=== PATIENT | female | born 1950 | race Hispanic/Latino ===

== ENCOUNTER 2016-10-21 14:54 | Outpatient (CLI) | payer MEDICARE, OTHER | END 2016-10-21 14:55 | disposition home or self-care (01) | LOC: LABHHL 14:54 | PROVIDERS: ATTEND Surgery | DX: N63 Unspecified lump in breast (principal) | CPT/HCPCS: 88305; 88341; 88342; 88361 ==

== ENCOUNTER 2016-11-03 12:46 | Outpatient (CLI) | payer MEDICARE ==
--- NOTE | 2016-11-04 09:44 | Magnetic Resonance Report ---
BILATERAL BREAST MRI WITHOUT AND WITH CONTRAST: 11/03/16 12:46:00 CLINICAL: Newly diagnosed right breast cancer. Status post right ultrasound guided needle biopsy on 10/20/16. 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 The focus of carcinoma measured 3 mm in greatest dimension. COMPARISON:10/20/16 post biopsy mammogram and a bilateral diagnostic mammogram from [facility] 03/05/16.. TECHNIQUE: Axial 1.0-mm T1 without, axial high resolution 2.0-mm T2 and axial 1.0-mm dynamic Vibrant high-resolution postcontrast T1 fat saturation sequences on a 1.5 Mayelin magnet. The examination was performed with an 8 channel dedicated Sentinelle breast coil. Post processing with CAD and subtraction was performed on an weave energy workstation. 20 cc of Multihance was injected without incident for the contrast portion of the exam. Consent was obtained prior to the administration of the contrast. FINDINGS: Right: Moderate background parenchymal enhancement. The localizer clip from recent biopsy is not well seen but there are two suspicious masses in the vicinity of the clip. The larger mass is at 12 o'clock 8.4 cm from the nipple and measures 15.1 x 8.8 x 7.2 mm. It demonstrates heterogeneous enhancement with mixed kinetics, 125% peak enhancement and 25% type III washout. The mass is oval with an irregular margin. The second mass is 1.5 cm lateral at 11:30 o'clock 8.4 cm from the nipple. It measures 7.5 x 7.2 x 4.5 mm and demonstrates heterogeneous enhancement with mixed kinetics, 134% peak enhancement and 25% type III washout. No other mass or suspicious enhancement. No suspicious lymph nodes. Several small right axillary lymph nodes have central fat a benign morphology. Left: Moderate background parenchymal enhancement. No mass or suspicious enhancement. No suspicious lymph nodes. IMPRESSION: 1. A 15 mm right breast mass at 12 o'clock and a 7.5 mm right breast mass at 11:30 o'clock. Both masses have suspicious features and appear to be in the vicinity of the biopsy clip. I assume that the larger mass has been biopsied and is the known cancer. This case is complicated because there is no distinct mass on the mammogram. The ultrasound findings (which I don't have) may be more definitive. 2. Negative left breast. 3. No suspicious lymph nodes. RIGHT BI-RADS 6 -- Known Cancer LEFT BI-RADS 1 -- Negative
== END 2016-11-03 12:47 | disposition home or self-care (01) ==
LOC: SPVIMAG 12:46
PROVIDERS: ATTEND Surgery
DX: C50.411 Malignant neoplasm of upper-outer quadrant of right female breast (principal)
CPT/HCPCS: 0159T; A9577; C8908; 77059

== ENCOUNTER 2016-11-17 13:24 | Outpatient (CLI) | payer MEDICARE ==
--- NOTE | 2016-11-17 16:54 | Magnetic Resonance Report ---
MRI GUIDED VACUUM ASSISTED CORE BIOPSY TWO SITES RIGHT BREAST: 11/17/16 CLINICAL: Newly diagnosed right breast cancer and 2 additional suspicious lesions by recent MRI. COMPARISON: 11/03/16 MRI Breast Bilateral FINDINGS: Consent for the procedure was obtained. A Vibrant dynamic postcontrast series was performed on a 1.5 Mayelin magnet using an 8 channel Sentinelle dedicated breast coil. Two lesions were localized and targeted using [email or web address] Sentinelle biopsy software. These lesions correlate with the 2 lesions identified on the previous MRI. The skin was anesthetized with 1% lidocaine and small dermatotomies were performed. 2% lidocaine was administered for deeper anesthesia. 9-G biopsy was performed with an [email or web address] vacuum assisted device. Imaging demonstrated satisfactory positioning of the probe at the two sites and satisfactory samples were obtained. Clips were placed at both sites after confirmation of adequate sampling. The probes were removed and hemostasis was achieved with pressure to the sites. Sterile dressings were applied. The patient tolerated the procedure well and there were no apparent complications. A two view mammogram demonstrated concordant placement of both clips. The patient left the department in good condition and was given instructions for wound care and follow-up. IMPRESSION: Uncomplicated MRI biopsy with clip placement two sites right breast.
--- NOTE | 2016-11-17 16:54 | Magnetic Resonance Report ---
MRI GUIDED VACUUM ASSISTED CORE BIOPSY TWO SITES RIGHT BREAST: 11/17/16 CLINICAL: Newly diagnosed right breast cancer and 2 additional suspicious lesions by recent MRI. COMPARISON: 11/03/16 MRI Breast Bilateral FINDINGS: Consent for the procedure was obtained. A Vibrant dynamic postcontrast series was performed on a 1.5 Mayelin magnet using an 8 channel Sentinelle dedicated breast coil. Two lesions were localized and targeted using [employer] Sentinelle biopsy software. These lesions correlate with the 2 lesions identified on the previous MRI. The skin was anesthetized with 1% lidocaine and small dermatotomies were performed. 2% lidocaine was administered for deeper anesthesia. 9-G biopsy was performed with an Spotsetter vacuum assisted device. Imaging demonstrated satisfactory positioning of the probe at the two sites and satisfactory samples were obtained. Clips were placed at both sites after confirmation of adequate sampling. The probes were removed and hemostasis was achieved with pressure to the sites. Sterile dressings were applied. The patient tolerated the procedure well and there were no apparent complications. A two view mammogram demonstrated concordant placement of both clips. The patient left the department in good condition and was given instructions for wound care and follow-up. IMPRESSION: Uncomplicated MRI biopsy with clip placement two sites right breast.
--- NOTE | 2016-11-17 16:58 | Mammography Report ---
RIGHT DIGITAL DIAGNOSTIC MAMMOGRAM: 11/17/16 13:24:00 CLINICAL: For clip placement immediately status post MRI guided needle biopsy at 2 sites. COMPARISON:10/20/16 FINDINGS: 2 biopsy clips correlate with the 2 MRI biopsy sites and the clip positions are concordant.The third more anterior clip corresponds to the known cancer. IMPRESSION: Concordant clip placement status post MRI guided needle biopsy at 2 sites. BI-RADS CATEGORY: 6--Known Cancer Pathology pending.
== END 2016-11-17 13:25 | disposition home or self-care (01) ==
LOC: SPVIMAG 13:24
PROVIDERS: ATTEND Surgery
DX: C50.411 Malignant neoplasm of upper-outer quadrant of right female breast (principal)
CPT/HCPCS: 19085; 19086; 88305; A9577; G0206; 88341; 88342

== ENCOUNTER 2017-01-09 09:56 | Outpatient (CLI) | payer MEDICARE | END 2017-01-09 09:57 | disposition home or self-care (01) | LOC: LABHHL 09:56 | PROVIDERS: ATTEND Surgery | DX: Z85.3 Personal history of malignant neoplasm of breast (principal); Z90.11 Acquired absence of right breast and nipple | CPT/HCPCS: 87075; 87116 ==

== ENCOUNTER 2017-09-25 13:08 | Outpatient (CLI) | payer OTHER | END 2017-09-25 13:09 | disposition home or self-care (01) | LOC: LABHHL 13:08 | PROVIDERS: ATTEND Surgery | DX: N60.09 Solitary cyst of unspecified breast (principal) | CPT/HCPCS: 88112; 88305 ==